=== PATIENT | female | born 1970 | race Caucasian/White ===

== ENCOUNTER 2025-03-24 06:31 | Day surgery (SDC) | payer BC, SELFPAY | END 2025-03-24 08:51 | disposition home or self-care (01) | LOC: GI 06:31 | PROVIDERS: ATTENDING PHYSICIAN Internal Medicine Gastroenterology | DX: K57.30 Diverticulosis of large intestine without perforation or abscess without bleeding (principal); K62.89 Other specified diseases of anus and rectum; Z80.0 Family history of malignant neoplasm of digestive organs | CPT/HCPCS: 45380; 88305 ==